=== PATIENT | female | born 1945 | race Hispanic/Latino ===

== ENCOUNTER → 2018-06-22 | Outpatient (CLI) | payer OTHER, MEDICARE ==
[~2018-06-22] MED LIST: LEVO88TA7 PO; MULT-1203 PO; SIMV20TA6 PO; SPIR50TA PO
== END | disposition home or self-care (01) ==
LOC: RAH 14:33
PROVIDERS: ATTEND Physical Medicine & Rehabilitation
DX: M75.122 Complete rotator cuff tear or rupture of left shoulder, not specified as traumatic (principal); M25.712 Osteophyte, left shoulder; M19.012 Primary osteoarthritis, left shoulder
CPT/HCPCS: 73221

== ENCOUNTER 2018-07-05 06:02 | Day surgery (SDC) | payer OTHER, MEDICARE ==
[2018-07-01 11:34] VITALS: BP 139/72
[~2018-07-05] VITALS: Ht 149.9 cm; Wt 66.7 kg
[2018-07-05] VITALS (12 sets, daily range): BP systolic 108–145; BP diastolic 61–75
[2018-07-05] MEDS: CLINDAMYCIN 900 MG/D5% WATER 50 ML IV SCH ×2 (05:00→07:30)
[~2018-07-05 06:02] MED LIST changes: -LEVO88TA7 PO; -MULT-1203 PO; +NAPR-1023 PO
[2018-07-05] MEDS ORDERED: LACTATED RINGERS 1000ML 1,000 ML IV ONE (06:19)
[2018-07-05] MEDS ORDERED: LIDOCAINE HCL-MPF 0.5% 50ML VIAL IJ ONE (06:50)
[2018-07-05] MEDS ORDERED: LIDOCAINE PF 2% 5ML ABBOJECT ONE (06:52)
[2018-07-05] MEDS ORDERED: DEXAMETHASONE SOD PHOSPHATE 10MG/ML 1ML VIAL ONE (06:52)
[2018-07-05] MEDS ORDERED: MIDAZOLAM HCL 1 MG/ML 2ML VIAL ONE (06:53)
[2018-07-05] MEDS ORDERED: FENTANYL CITRATE PF 50 MCG/1 ML 2ML VIAL ONE (06:53)
[2018-07-05] MEDS ORDERED: ONDANSETRON HCL 4 MG/2 ML VIAL ONE (06:53)
[2018-07-05] MEDS ORDERED: PROPOFOL 10 MG/ML 20ML VIAL IV ONE (06:53)
[2018-07-05] MEDS ORDERED: ROCURONIUM 10MG/1ML SYR 10 MG/ML ML ONE (06:57)
[2018-07-05] MEDS ORDERED: GLYCOPYRROLATE 0.2 MG/ML 5 ML VIAL ONE (08:50)
== END 2018-07-05 09:58 | disposition home or self-care (01) ==
LOC: DAH 06:02
PROVIDERS: ATTEND Neurological Surgery
DX: G56.01 Carpal tunnel syndrome, right upper limb (principal); Z79.899 Other long term (current) drug therapy
CPT/HCPCS: 64721; 93005; J1100; J2001; J2250; J2405; J2704; J3010; J3490 ×3; J7120

== ENCOUNTER → 2018-12-14 | Outpatient (CLI) | payer OTHER, MEDICARE | END | disposition home or self-care (01) | LOC: RAH 11:11 | PROVIDERS: ATTEND Physical Medicine & Rehabilitation | DX: M47.22 Other spondylosis with radiculopathy, cervical region (principal); M85.88 Other specified disorders of bone density and structure, other site | CPT/HCPCS: 72052 ==

== ENCOUNTER → 2019-03-15 | Outpatient (CLI) | payer OTHER, MEDICARE | END | disposition home or self-care (01) | LOC: RAH 12:47 | PROVIDERS: ATTEND Physical Medicine & Rehabilitation | DX: M48.02 Spinal stenosis, cervical region (principal); M50.121 Cervical disc disorder at C4-C5 level with radiculopathy | CPT/HCPCS: 72141 ==

== ENCOUNTER → 2021-10-22 | Outpatient (CLI) | payer OTHER, MEDICARE ==
[~2021-10-22] MED LIST changes: +SIMV-43 PO; -SIMV20TA6 PO
== END | disposition home or self-care (01) ==
LOC: RAH 13:52
PROVIDERS: ATTEND Family Medicine
DX: I73.9 Peripheral vascular disease, unspecified (principal)
CPT/HCPCS: 93922

== ENCOUNTER 2021-11-15 23:17 | Emergency (ER) | payer OTHER, MEDICARE ==
[~2021-11-15] VITALS: Ht 144.8 cm; Wt 72.6 kg
[2021-11-15 23:53] LABS: APPEARANCE,URINE CLEAR (CLEAR); BILIRUBIN,URINE NEGATIVE (NEGATIVE); COLOR,URINE YELLOW (YELLOW); GLUCOSE, URINE (UA) NEGATIVE (NEGATIVE); KETONES,URINE 5 mg/dL (NEGATIVE); LEUKOCYTE ESTERASE ,URINE NEGATIVE (NEGATIVE); NITRATE,URINE NEGATIVE (NEGATIVE); OCCULT BLOOD,URINE NEGATIVE (NEGATIVE); PROTEIN,URINE NEGATIVE (NEGATIVE)
[2021-11-15 23:55] LABS: BASOPHILS % (AUTO) 0.2 % (0.0-5.0); EOSINOPHILS % (AUTO) 1.4 % (0.0-8.0); HEMATOCRIT 40.5 % (36-48); LYMPHOCYTES % (AUTO) 27.6 % (21.0-51.0); MEAN CORPUSCULAR HEMOGLOBIN 28.3 pg (27.0-33.0); MEAN CORPUSCULAR HGB CONC 32.3 g/dL (32.0-36.0); MEAN CORPUSCULAR VOLUME 87.5 fL (79-99); MONOCYTES % (AUTO) 9.1 % (3.0-13.0); NEUTROPHILS % (AUTO) 61.5 % (40.0-77.0); PLATELET COUNT (AUTO) 222 K/uL (130-400); RED BLOOD CELL COUNT(AUTO) 4.63 MIL/uL (4.00-5.50); RED CELL DISTRIBUTION WIDTH 13.2 % (11.0-15.5); WHITE BLOOD COUNT (AUTO) 8.9 K/uL (4.8-10.8)
[2021-11-16 00:06] LABS: CREATININE 0.6 mg/dL (0.5-1.5); POTASSIUM 3.3 mmol/L (3.5-5.1)
[2021-11-16 00:10] LABS: ALBUMIN 3.6 g/dL (3.5-5.0); BILIRUBIN,TOTAL 0.6 mg/dL (0.2-1.0); TOTAL PROTEIN, SERUM 7.4 g/dL (6.0-8.3)
[2021-11-16] MEDS ORDERED: IOHEXOL 350 MG/ML 100ML INFUS..BTL IV ONE (00:41)
[2021-11-16] MEDS ORDERED: METRONIDAZOLE 500MG/100ML BAG 100 ML ONE (02:42)
[2021-11-16] MEDS ORDERED: LEVOFLOXACIN 750 MG/D5W 150 ML 150 ML ONE (02:42)
[2021-11-16] MEDS ORDERED: METRONIDAZOLE 500MG/100ML BAG 100 ML IVPB ONE (03:00)
[2021-11-16] MEDS ORDERED: KETOROLAC 15MG/ML VIAL (15MG/ML) IV ONE (03:00)
[2021-11-16] MEDS ORDERED: METOCLOPRAMIDE 10 MG/2 ML VIAL IVP ONE (03:00)
[2021-11-16] MEDS ORDERED: LEVOFLOXACIN 750 MG/D5W 150 ML 150 ML IV ONE (03:00)
[2021-11-16] MEDS ORDERED: ONDANSETRON 4MG INJ IVP ONE (03:00)
[2021-11-16] MEDS ORDERED: METO-296 PO (04:02)
[2021-11-16] MEDS ORDERED: LEVO750T46 PO (04:02)
[2021-11-16] MEDS ORDERED: ONDA4TAB10 PO (04:02)
[2021-11-16] MEDS ORDERED: METR-172 PO (04:02)
[2021-11-16 05:33] VITALS: BP 118/53
== END 2021-11-16 05:33 | disposition home or self-care (01) ==
LOC: EDH 23:17
DX: K57.32 Diverticulitis of large intestine without perforation or abscess without bleeding (principal); E86.9 Volume depletion, unspecified; I10 Essential (primary) hypertension; E03.9 Hypothyroidism, unspecified; Z88.0 Allergy status to penicillin; Z79.899 Other long term (current) drug therapy; Z90.89 Acquired absence of other organs; Z98.890 Other specified postprocedural states; Z90.49 Acquired absence of other specified parts of digestive tract
CPT/HCPCS: 36415; 74177; 80053; 81003; 83605; 83690; 85025; 96365; 96367; 96375; 99285; J1885; J1956 ×2; J2405; J2765; J3490; Q9967

== ENCOUNTER 2021-12-05 20:57 | Emergency (ER) | payer OTHER, MEDICARE ==
[~2021-12-05] VITALS: Ht 144.8 cm; Wt 72.6 kg
[~2021-12-05 20:57] MED LIST changes: +LEVO750T46 PO; +METO-296 PO; +METR-172 PO; +ONDA4TAB10 PO
[2021-12-05] MEDS ORDERED: LIDOCAINE HCL MPF 1% 5ML VIAL ONE (21:30)
[2021-12-05] MEDS ORDERED: CEPH500B PO (21:52)
[2021-12-05] MEDS ORDERED: CEPHALEXIN 500 MG CAPSULE PO ONE (22:00)
[2021-12-05] MEDS ORDERED: TETANUS/DIPHTHERIA TOXOID [ADULT] 0.5 ML VIAL IM ONE (22:00)
[2021-12-05 22:16] VITALS: BP 124/76
== END 2021-12-05 22:18 | disposition home or self-care (01) ==
LOC: EDH 20:57
DX: S60.453A Superficial foreign body of left middle finger, initial encounter (principal); E78.00 Pure hypercholesterolemia, unspecified; I10 Essential (primary) hypertension; M19.90 Unspecified osteoarthritis, unspecified site; Z79.1 Long term (current) use of non-steroidal anti-inflammatories (NSAID); Z79.899 Other long term (current) drug therapy; Z88.0 Allergy status to penicillin; W45.8XXA Other foreign body or object entering through skin, initial encounter; Y93.89 Activity, other specified; Y92.89 Other specified places as the place of occurrence of the external cause; Y99.8 Other external cause status
CPT/HCPCS: 73130; 90471; 90714; 99284; J3490

== ENCOUNTER → 2022-01-09 | Outpatient (CLI) | payer OTHER, MEDICARE ==
[~2022-01-09] MED LIST changes: +CEPH500B PO
== END | disposition home or self-care (01) ==
LOC: SHCH 09:32
PROVIDERS: ATTEND Internal Medicine Cardiovascular Disease
DX: I70.293 Other atherosclerosis of native arteries of extremities, bilateral legs (principal); I87.2 Venous insufficiency (chronic) (peripheral)
CPT/HCPCS: 93925; 93970

== ENCOUNTER 2022-07-04 15:55 | Emergency (ER) | payer OTHER, MEDICARE ==
[~2022-07-04] VITALS: Ht 144.8 cm; Wt 73.9 kg
[~2022-07-04 15:55] MED LIST changes: -LEVO750T46 PO; +LEVO750T68 PO
[2022-07-04] MEDS ORDERED: TRIAMCINOLONE ACETONIDE 40 MG/ML 1ML VIAL INJ ONE (16:30)
[2022-07-04] MEDS ORDERED: ACETAMINOPHEN 500 MG TABLET PO ONE (16:30)
[2022-07-04] MEDS ORDERED: CYCLOBENZAPRINE HCL 10 MG TABLET PO ONE (16:30)
[2022-07-04] MEDS ORDERED: CYCL10TA16 PO (17:32)
[2022-07-04] MEDS ORDERED: NAPR-1180 PO (17:32)
[2022-07-04 17:47] VITALS: BP 140/70
== END 2022-07-04 17:48 | disposition home or self-care (01) ==
LOC: EDH 15:55
DX: M54.59 Other low back pain (principal); E78.00 Pure hypercholesterolemia, unspecified; I10 Essential (primary) hypertension; M81.0 Age-related osteoporosis without current pathological fracture; Z79.1 Long term (current) use of non-steroidal anti-inflammatories (NSAID); Z88.0 Allergy status to penicillin; Z90.49 Acquired absence of other specified parts of digestive tract
CPT/HCPCS: 99284; 20552; 72100; J3301

== ENCOUNTER 2023-03-10 12:26 | Emergency (ER) | payer OTHER, MEDICARE ==
[~2023-03-10] VITALS: Ht 152.4 cm; Wt 74.4 kg
[~2023-03-10 12:26] MED LIST changes: +CYCL10TA16 PO; +NAPR-1180 PO
[2023-03-10] MEDS ORDERED: KETOROLAC 60 MG VIAL (30MG/ML) IM ONE (14:30)
[2023-03-10] MEDS ORDERED: HYDROCODONE/ACETAMINOPHEN 5/325 MG TAB PO ONE (14:30)
[2023-03-10 14:32] LABS: BASOPHILS % (AUTO) 0.2 % (0.0-5.0); EOSINOPHILS % (AUTO) 0.2 % (0.0-8.0); HEMATOCRIT 40.9 % (36-48); LYMPHOCYTES % (AUTO) 9.5 % (21.0-51.0); MEAN CORPUSCULAR HEMOGLOBIN 28.1 pg (27.0-33.0); MEAN CORPUSCULAR HGB CONC 33.3 g/dL (32.0-36.0); MEAN CORPUSCULAR VOLUME 84.5 fL (79-99); MONOCYTES % (AUTO) 3.9 % (3.0-13.0); NEUTROPHILS % (AUTO) 85.9 % (40.0-77.0); PLATELET COUNT (AUTO) 209 K/uL (130-400); RED BLOOD CELL COUNT(AUTO) 4.84 MIL/uL (4.00-5.50); RED CELL DISTRIBUTION WIDTH 13.2 % (11.0-15.5); WHITE BLOOD COUNT (AUTO) 10.9 K/uL (4.8-10.8)
[2023-03-10 14:40] LABS: CREATININE 0.8 mg/dL (0.5-1.5); POTASSIUM 3.6 mmol/L (3.5-5.1)
[2023-03-10 14:45] LABS: ALBUMIN 3.6 g/dL (3.5-5.0); TOTAL PROTEIN, SERUM 7.3 g/dL (6.0-8.3)
[2023-03-10 15:03] LABS: APPEARANCE,URINE CLEAR (CLEAR); BILIRUBIN,URINE NEGATIVE (NEGATIVE); COLOR,URINE LIGHT-YELLOW (YELLOW); GLUCOSE, URINE (UA) NEGATIVE (NEGATIVE); KETONES,URINE >=80 mg/dL (NEGATIVE); LEUKOCYTE ESTERASE ,URINE NEGATIVE Leu/uL (NEGATIVE); NITRATE,URINE NEGATIVE (NEGATIVE); OCCULT BLOOD,URINE LARGE (NEGATIVE); PH,URINE 5.5 (5.0-8.0); PROTEIN,URINE NEGATIVE (NEGATIVE); UROBILINOGEN,URINE 0.2 mg/dL (0.2-1.0)
[2023-03-10 15:15] LABS: BACTERIA,URINE RARE /HPF (None Seen); MUCUS,URINE RARE LPF (None Seen); RBC,URINE 51-100 /HPF (0-1); SQUAMOUS EPITHELIAL CELL,UR RARE /HPF (0-2); YEAST,URINE BUDDING RARE /HPF (None Seen)
[2023-03-10] MEDS ORDERED: TAMSULOSIN HCL 0.4 MG CAP.ER.24H PO ONE (17:30)
[2023-03-10 17:39] VITALS: BP 148/64
[2023-03-10] MEDS ORDERED: LEVOFLOXACIN 500 MG TABLET PO SCH (18:30)
[2023-03-10] MEDS ORDERED: LEVO250T75 PO (18:41)
[2023-03-10] MEDS ORDERED: TAMS-1 PO (18:41)
[2023-03-10] MEDS ORDERED: ACET-2079 PO (18:41)
== END 2023-03-10 18:48 | disposition home or self-care (01) ==
LOC: EDH 12:26
DX: N20.1 Calculus of ureter (principal); N30.90 Cystitis, unspecified without hematuria; M19.90 Unspecified osteoarthritis, unspecified site; E78.00 Pure hypercholesterolemia, unspecified; I10 Essential (primary) hypertension; Z79.899 Other long term (current) drug therapy; Z88.0 Allergy status to penicillin; Z90.49 Acquired absence of other specified parts of digestive tract; Z90.710 Acquired absence of both cervix and uterus; Z20.822 Contact with and (suspected) exposure to COVID-19
CPT/HCPCS: 99285; 74176; 87635; 80053; 85025; 87088; 87804 ×2; 81001; 36415; 96372; C9803; J1885

== ENCOUNTER → 2023-03-24 | Outpatient (CLI) | payer OTHER, MEDICARE ==
[~2023-03-24] MED LIST changes: +ACET-2079 PO; +LEVO250T75 PO; +TAMS-1 PO
== END | disposition home or self-care (01) ==
LOC: SHCH 13:04
PROVIDERS: ATTEND Internal Medicine Cardiovascular Disease
DX: I87.2 Venous insufficiency (chronic) (peripheral) (principal); I87.1 Compression of vein
CPT/HCPCS: 93970

== ENCOUNTER 2024-01-30 18:38 | Emergency (ER) | payer OTHER, MEDICARE ==
[~2024-01-30] VITALS: Ht 144.8 cm; Wt 64.4 kg
[2024-01-30 19:28] LABS: BASOPHILS # (AUTO) 0.03 K/uL (0.00-0.20); BASOPHILS % (AUTO) 0.4 % (0.0-5.0); EOSINOPHILS # (AUTO) 0.22 K/uL (0.00-0.70); IMMATURE GRANULOCYTE ABSOLUTE 0.01 K/uL (0-1); LYMPHOCYTES # (AUTO) 2.2 K/uL (1.0-4.8); LYMPHOCYTES % (AUTO) 30.4 % (21.0-51.0); MEAN CORPUSCULAR HEMOGLOBIN 29.5 pg (27.0-33.0); MEAN CORPUSCULAR HGB CONC 34.1 g/dL (32.0-36.0); MEAN CORPUSCULAR VOLUME 86.5 fL (79-99); MONOCYTES # (AUTO) 0.6 K/uL (0.1-1.0); MONOCYTES % (AUTO) 8.2 % (3.0-13.0); NEUTROPHILS # (AUTO) 4.2 K/uL (1.8-7.7); NEUTROPHILS % (AUTO) 57.9 % (40.0-77.0); PLATELET COUNT (AUTO) 250 K/uL (130-400); RED BLOOD CELL COUNT(AUTO) 4.51 MIL/uL (4.00-5.50); RED CELL DISTRIBUTION WIDTH 13.2 % (11.0-15.5); WHITE BLOOD COUNT (AUTO) 7.3 K/uL (4.8-10.8)
[2024-01-30 19:50] LABS: CREATININE 0.7 mg/dL (0.5-1.0); POTASSIUM 3.6 mmol/L (3.5-5.1)
[2024-01-30 19:51] VITALS: BP 142/65; PULSE 61; RESP 20; O2SAT 98
[2024-01-30 19:55] LABS: ALBUMIN 3.3 g/dL (3.5-5.0); BILIRUBIN,TOTAL 0.4 mg/dL (0.2-1.0); TOTAL PROTEIN, SERUM 6.8 g/dL (6.0-8.3)
[2024-01-30] MEDS: CLINDAMYCIN 150 MG CAP PO ONE (19:58)
[2024-01-30] MEDS: ACETAMINOPHEN 500 MG TABLET PO ONE (19:59)
[2024-01-30] MEDS: LIDOCAINE HCL 1% 20 ML VIAL INJ SCH (19:59)
[2024-01-30] MEDS ORDERED: CLIN-141 PO (20:23)
== END 2024-01-30 20:28 | disposition home or self-care (01) ==
LOC: EDH 18:38
DX: J86.9 Pyothorax without fistula (principal); I10 Essential (primary) hypertension; E78.00 Pure hypercholesterolemia, unspecified; E03.9 Hypothyroidism, unspecified; Z79.899 Other long term (current) drug therapy; Z98.890 Other specified postprocedural states; Z88.0 Allergy status to penicillin
CPT/HCPCS: 10060; 36415; 80053; 83605; 85025; 87040; 87071; 87205

== ENCOUNTER 2024-04-08 16:13 | Emergency (ER) | payer MEDICARE ==
[~2024-04-08] VITALS: Ht 144.8 cm; Wt 72.6 kg
[~2024-04-08 16:13] MED LIST changes: +CLIN-141 PO; +ONDA-243 PO; -ONDA4TAB10 PO
[2024-04-08] MEDS: TRAMADOL HCL 50 MG TABLET PO ONE (18:00)
[2024-04-08 19:30] VITALS: BP 135/72; PULSE 65; RESP 20; O2SAT 99
== END 2024-04-08 19:31 | disposition home or self-care (01) ==
LOC: EDH 16:13
DX: M19.011 Primary osteoarthritis, right shoulder (principal); E78.00 Pure hypercholesterolemia, unspecified; E03.9 Hypothyroidism, unspecified; I10 Essential (primary) hypertension; Z79.899 Other long term (current) drug therapy; Z88.0 Allergy status to penicillin; Z90.49 Acquired absence of other specified parts of digestive tract; Z90.710 Acquired absence of both cervix and uterus; Z98.890 Other specified postprocedural states
CPT/HCPCS: 73030; 73200

== ENCOUNTER 2025-08-07 16:59 | Emergency (ER) | payer MEDICARE, MEDICAID ==
[~2025-08-07] VITALS: Ht 157.5 cm; Wt 79.4 kg
[~2025-08-07 16:59] MED LIST changes: -NAPR-1023 PO; +NAPR-1194 PO; -TAMS-1 PO; +TAMS-55 PO
--- NOTE | 2025-08-07 17:06 | ERN ---
ED Note History of Present Illness Stated Complaint: BACK PAIN Chief Complaint: Back Pain-No Injury Time Seen by MD: 17:02 Dictation: PATIENT IS A 79-YEAR-OLD FEMALE HERE WITH HER DAUGHTER WITH COMPLAINTS OF LOW BACK PAIN AND DYSURIA SHE HAS HAD FOR 4-5 DAYS. NO FEVER NO CHILLS NO NAUSEA VOMITING. SHE DID NOT GO SEE YOUR PRIMARY CARE DOCTOR BECAUSE THERE WAS NO APPOINTMENTS UNTIL August. TAKEN ANYTHING FOR PAIN OTHER THAN METHOCARBAMOL THAT HER DAUGHTER GAVE HER FROM HER OWN MEDICATIONS. HISTORY OF UTI Allergies: Coded Allergies: Penicillins (Unverified Allergy, Unknown, 11/16/21) Home Meds Active Scripts Clindamycin HCl (Clindamycin HCl) 300 Mg Capsule, 300 MG PO QID for 7 Days, #28 CAP Prov:ROSA BRASHER 01/30/24 Levofloxacin (Levofloxacin) 250 Mg Tablet, 250 MG PO DAILY, #7 TAB 0 Refills Prov:MELISSA UMAÑA MD 03/10/23 Tamsulosin HCl (Flomax) 0.4 Mg Cap.er.24h, 0.4 MG PO DAILY, #7 CAPSULE.DR 0 Refills Prov:MELISSA UMAÑA MD 03/10/23 Acetaminophen with Codeine (Acetaminophen-Cod #3 Tablet) 1 Each Tablet, 1-2 TAB PO Q4H PRN for PAIN, #28 TAB 0 Refills Prov:MELISSA UMAÑA MD 03/10/23 Cyclobenzaprine HCl (Flexeril) 10 Mg Tab, 10 MG PO BID, #30 TAB Prov:VICENTE MADRID 07/04/22 Naproxen (Naprosyn) 500 Mg Tablet, 500 MG PO BIDPC, #60 TAB Prov:VICENTE MADRID 07/04/22 Cephalexin Monohydrate (Keflex) 500 Mg Cap, 500 MG PO TID for 7 Days, #21 CAP Prov:VICENTE MADRID 12/05/21 Metronidazole (Metronidazole) 500 Mg Tablet, 500 MG PO TID for 10 Days, #30 TAB 0 Refills Prov:GEN MERAZ MD 11/16/21 Levofloxacin (Levaquin 750Mg Tabs) 750 Mg Tablet, 750 MG PO DAILY for 10 Days, #10 TAB 0 Refills Prov:GEN MERAZ MD 11/16/21 Ondansetron (Ondansetron Odt) 4 Mg Tab.rapdis, 4 MG PO Q6HPRN, #20 TAB 0 Refills Prov:GEN MERAZ MD 11/16/21 Metoclopramide HCl (Reglan) 10 Mg Tablet, 10 MG PO TIDP, #20 TAB 0 Refills Prov:GEN MERAZ MD 11/16/21 Reported Medications Naproxen (Naproxen) 500 Mg Tablet, 500 MG PO AD PRN for PAIN LEVEL 1 TO 5, TAB 07/01/18 Simvastatin (Simvastatin) 20 Mg Tablet, 20 MG PO DAILY, TAB 03/07/18 Spironolactone (Aldactone) 50 Mg Tablet, 50 MG PO HS, TAB 04/17/16 Past Medical History Past Medical History: High Cholesterol, Hypertension, Hypothyroid, UTI Additional Past Medical Hx: POLIO Surgical History: Hysterectomy, Cholecystectomy Surgical History Other: BILAT SHOULDER SX, RT KNEE SX, LT LEG STENT, BILAT HAND SX Family History: Negative Social History: Negative, Lives with family History: Not Applicable RN Note Reviewed/Agreed w/PFSH: Yes Review of System Dictation CONSTITUTIONAL: NEGATIVE EXCEPT FOR HPI HEAD/FACE: NEGATIVE EXCEPT FOR HPI EENT: NEGATIVE EXCEPT FOR HPI RESPIRATORY: NEGATIVE EXCEPT FOR HPI GASTROINTESTINAL/ABDOMINAL: NEGATIVE EXCEPT FOR HPI GENITOURINARY: NEGATIVE EXCEPT FOR HPI DYSURIA, LOW BACK PAIN MUSCULOSKELETAL: NEGATIVE EXCEPT FOR HPI INTEGUMENTARY: NEGATIVE EXCEPT FOR HPI NEUROLOGICAL/PSYCH: NEGATIVE EXCEPT FOR HPI HEMATOLOGIC/LYMPHATIC: NEGATIVE EXCEPT FOR HPI ALL SYSTEMS NEGATIVE, EXCEPT NOTED ABOVE. 13 POINT REVIEW OF SYSTEMS ASSESSED AND ALL NEGATIVE EXCEPT FOR ABOVE. Initial Vital Sign VS Vital Signs Date Time Temp Pulse Resp B/P (MAP) Pulse Ox O2 Delivery O2 Flow Rate FiO2 08/07/25 17:03 98.8 84 18 134/68 98 08/07/25 17:41 Room Air* 0 21 Physical Exam Dictation VITAL SIGNS REVIEWED GENERAL APPEARANCE: ALERT, ORIENTED X 3, NO ACUTE DISTRESS, WELL DEVELOPED, NOURISHED. HEAD AND FACE: NON-TRAUMATIC. EYES: PERRL, PINK CONJUNCTIVAS, EYELID NO TRAUMA, ANTERIOR CHAMBER WITH ARCUS SENILIS. EARS: PINNAS INTACT AND NO SIGNS OF TRAUMA OR ERYTHEMA EAR CANALS CLEAR AND NO DISCHARGE TM NO ERYTHEMA NOSE: NO DISCHARGE, NO BLEEDING. OROPHARYNX: MOUTH NORMAL, TONGUE PINK, PHARYNX CLEAR,NO ERYTHEMA, TONSILS NO EXUDATES, NO ABSCESSES NOTED, MUCOUS MEMBRANE MOIST NECK: SUPPLE, NON-TENDER, NO THYROMEGALY, NO MASSES, NO JVD, NO BRUITS BREAST:DEFERRED CHEST:NO TENDERNESS, NO CREPITUS, NO PARADOXICAL MOVEMENT, NO RETRACTIONS LUNGS:CLEAR, WELL-VENTILATED, SYMMETRIC, NO RALES, NO WHEEZING, NO RHONCHI, NO STRIDOR, GOOD BREATH SOUNDS BILATERALLY HEART: REGULAR RATE, REGULAR RHYTHM, NO MURMUR, NO GALLOPS VASCULAR: NO PERIPHERAL EDEMA, ABDOMEN: SOFT, POSITIVE BOWEL SOUNDS, NONDISTENDED, NO GUARDING, NONTENDER, NO REBOUND, NO MASSES NO HEPATOMEGALY, NO SPLENOMEGALY, NO CASTREJON'S SIGN, NO HERNIAS. NEGATIVE CVAT BILATERALLY RECTAL: DEFERRED GENITAL: DEFERRED NEUROLOGICAL: NORMAL SPEECH, MOTOR FUNCTION INTACT, SENSORY FUNCTION INTACT MUSCULOSKELETAL: NECK NONTENDER, FULL RANGE OF MOTION, DIFFUSE LOWER THORACIC AND LUMBAR PAIN. NO MIDLINE SPINE PAIN. NO STEP-OFF, FULL RANGE OF MOTION, EXTREMITIES: NONTENDER, FULL RANGE OF MOTION SKIN: COLOR PINK, DRY, NO TURGOR, NO RASH, NO LACERATIONS, NO ABRASIONS, NO CONTUSIONS. LYMPHATIC: DEFERRED Results (Laboratory/Radiology) Laboratory/Radiology Laboratory Tests Test 08/07/25 17:04 Urine Color YELLOW (YELLOW) Urine Appearance CLEAR (CLEAR) Urine pH 5.5 (5.0-8.0) Urine Specific [place] 1.025 (1.001-1.031) Urine Protein NEGATIVE mg/dL (NEGATIVE) Urine Glucose (UA) NEGATIVE mg/dL (NEGATIVE) Urine Ketones NEGATIVE mg/dL (NEGATIVE) Urine Occult Blood NEGATIVE (NEGATIVE) Urine Nitrate NEGATIVE (NEGATIVE) Urine Bilirubin NEGATIVE mg/dL (NEGATIVE) Urine Urobilinogen 0.2 mg/dL (0.2-1.0) Urine Leukocyte Esterase NEGATIVE [place]/uL EXAM: Thoracic spine radiograph 2 view HISTORY: Pain COMPARISON: None TECHNIQUE: AP and lateral views of the spine FINDINGS: Contour and alignment of the thoracic spine is normal. Bones are osteopenic. Vertebral body heights are maintained with no gross fracture. Degenerative of the thoracic spine. Visualized lungs are clear. IMPRESSION: No definite spinal fracture /[place] EXAM: CR Lumbar Spine, 3 View. CLINICAL HISTORY: LUMBAR PAIN STATUS POST FALL COMPARISON: None provided. FINDINGS: BONES: No acute fracture or aggressive appearing osseous lesion. ALIGNMENT: Alignment is within normal limits. No significant scoliosis. DISCS / DEGENERATIVE CHANGES: Lumbar spondylosis and mild to moderate multilevel degenerative disc disease, more pronounced at L4-L5 and L5-S1. SOFT TISSUES: Incidental vascular skin overlies the left lower abdomen and pelvis. IMPRESSION: 1. No acute osseous injury. /[place] Labs Reviewed?: Yes ED Course ED Course Orders Procedure Category Date Status Time Urinalysis Profile LAB 08/07/25 Complete 17:04 Lumbar Spine 2-3vws RAD 08/07/25 Resulted 17:41 Thoracic Spine 2vws RAD 08/07/25 Resulted 17:41 Acetaminophen 500mg PHA 08/07/25 Complete Tab (Tylenol 500mg T 18:00 Current Medications Medications (Trade) Dose Ordered Sig/[place] Route PRN Reason Start Time Stop Time Status Last Admin Dose Admin Acetaminophen (TYLenol 500MG TAB) 1,000 mg ONCE ONCE PO 08/07/25 18:00 08/07/25 18:01 DC 08/07/25 18:02 Vital Signs Date Time Temp Pulse Resp B/P (MAP) Pulse Ox O2 Delivery O2 Flow Rate FiO2 08/07/25 17:41 98.8 77 18 147/66 99 Room Air* 0 21 08/07/25 17:03 98.8 84 18 134/68 98 1745/PATIENT NOW TELLS DAUGHTER THAT SHE HAD A SAME LEVEL FALL ON HER BUTT THREE DAYS AGO PRIOR TO ARRIVAL. SHE DID NOT REVEAL THIS TO HER FAMILY UNTIL NOW IN THE EMERGENCY ROOM AND WHEN SHE TOLD THE RN SEEING HER. Medical Decision Making [facility] 2015/MEDICAL DISCHARGE MAKING BASED ON X-RAYS OF THORACIC LUMBAR SPINES BOTH NEGATIVE EXCEPT FOR DEGENERATIVE CHANGES UA NEGATIVE PATIENT DISCHARGED HOME WITH MUSCULOSKELETAL PAIN GIVEN IBUPROFEN TOLD SEE HER DOCTOR SOON POSSIBLE DX & DISP Disposition: Discharge Departure Impression: Primary Impression: DJD (degenerative joint disease), lumbar Additional Impressions: Back contusion, Fall Condition: Stable Scripts Ibuprofen (Ibuprofen 800 mg Tab) 800 Mg Tab 800 MG PO Q8H PRN for fever or pain, #30 TAB 0 Refills Prov: ROSA BRASHER QUAHOGGER 08/07/25 Additional Instructions: FOLLOW-UP WITH PRIMARY CARE PROVIDER IN 1 TO 2 DAYS. TAKE MEDICATIONS DIRECTED HERE IN THE EMERGENCY ROOM. OKAY TO CONTINUE HOME MEDICATIONS UNLESS OTHERWISE DISCUSSED DURING YOUR VISIT IN THE EMERGENCY ROOM TODAY. RETURN TO YOUR NEAREST EMERGENCY ROOM IF SYMPTOMS WORSEN OR IF THERE IS NO IMPROVEMENT. CALL 911 IF YOU NEED IMMEDIATE ASSISTANCE. TAKE TYLENOL OR MOTRIN [id number] NEEDED AND IF NO CONTRAINDICATIONS ARE PRESENT. INCREASE ORAL HYDRATION. A WOUND CULTURE OR URINE CULTURE WAS ORDERED HERE IN THE EMERGENCY ROOM DEPARTMENT PLEASE FOLLOW-UP WITH PRIMARY CARE PROVIDER AND ADVISE THEM TO GET REPEAT PORTS FROM OUR FACILITY. IF YOU HAD ANY SY WRAP/SPLINTS THAT WERE APPLIED HERE, PLEASE DO NOT REMOVE THEM UNTIL YOU SEE YOUR PRIMARY CARE OR SPECIALTY. WARM COMPRESSES TO BACK THREE TO 4 TIMES A DAY. TAKE IBUPROFEN NEEDED FOR PAIN WITH FOOD. SEE YOUR PRIMARY CARE DOCTOR FOR FOLLOW UP Referrals: CATALINA CRANE MD (PCP) Time of Disposition: 20:14 I have reviewed the case, and I agree with, Diagnosis and Plan ROSA BRASHER Aug 07, 2025 17:06
[2025-08-07 17:21] LABS: APPEARANCE,URINE CLEAR (CLEAR); GLUCOSE, URINE (UA) NEGATIVE (NEGATIVE); LEUKOCYTE ESTERASE ,URINE NEGATIVE Leu/uL (NEGATIVE); NITRATE,URINE NEGATIVE (NEGATIVE); OCCULT BLOOD,URINE NEGATIVE (NEGATIVE)
[2025-08-07 17:27] LABS: ADD UA MICROSCOPIC NO
--- NOTE | 2025-08-07 19:48 | HMCIMG ---
EXAM: CR Lumbar Spine, 3 View. CLINICAL HISTORY: LUMBAR PAIN STATUS POST FALL COMPARISON: None provided. FINDINGS: BONES: No acute fracture or aggressive appearing osseous lesion. ALIGNMENT: Alignment is within normal limits. No significant scoliosis. DISCS / DEGENERATIVE CHANGES: Lumbar spondylosis and mild to moderate multilevel degenerative disc disease, more pronounced at L4-L5 and L5-S1. SOFT TISSUES: Incidental vascular skin overlies the left lower abdomen and pelvis. IMPRESSION: 1. No acute osseous injury. /[place]
--- NOTE | 2025-08-07 19:48 | HMCIMG ---
EXAM: Thoracic spine radiograph 2 view HISTORY: Pain COMPARISON: None TECHNIQUE: AP and lateral views of the spine FINDINGS: Contour and alignment of the thoracic spine is normal. Bones are osteopenic. Vertebral body heights are maintained with no gross fracture. Degenerative of the thoracic spine. Visualized lungs are clear. IMPRESSION: No definite spinal fracture /[place]
[2025-08-07] MEDS ORDERED: IBUP-2077 PO (20:15)
[2025-08-07 20:18] VITALS: BP 129/68; PULSE 72; RESP 18; TEMP 98.8; O2SAT 98
== END 2025-08-07 20:19 | disposition home or self-care (01) ==
LOC: EDH 16:59
DX: S20.229A Contusion of unspecified back wall of thorax, initial encounter (principal); M47.816 Spondylosis without myelopathy or radiculopathy, lumbar region; E03.9 Hypothyroidism, unspecified; E78.00 Pure hypercholesterolemia, unspecified; I10 Essential (primary) hypertension; Z79.899 Other long term (current) drug therapy; Z87.440 Personal history of urinary (tract) infections; Z88.0 Allergy status to penicillin; Z90.49 Acquired absence of other specified parts of digestive tract; Z90.710 Acquired absence of both cervix and uterus; W18.39XA Other fall on same level, initial encounter; Y93.89 Activity, other specified; Y92.89 Other specified places as the place of occurrence of the external cause; Y99.8 Other external cause status
CPT/HCPCS: 72070; 72100; 81003; 99284